=== PATIENT | male | born 1985 | race Caucasian/White ===

== ENCOUNTER 2021-12-23 17:01 | Emergency (ER) | payer SELFPAY ==
[~2021-12-23] VITALS: Ht 180.3 cm; Wt 76.0 kg
[~2021-12-23 17:01] MED LIST: PERCOCET 5/325M1 TAB PO
[2021-12-23 17:10] VITALS: BP 144/85
[2021-12-23 17:15] VITALS: BP 134/86
[2021-12-23] MEDS ORDERED: KEFLEX500 MG PO (17:38)
== END 2021-12-23 18:10 | disposition home or self-care (01) | DRG 607 ==
LOC: ED 17:01
DX: L73.9 Follicular disorder, unspecified (principal); F17.210 Nicotine dependence, cigarettes, uncomplicated

== ENCOUNTER 2023-03-18 16:38 | Emergency (ER) | payer SELFPAY ==
[2023-03-18] VITALS (7 sets, daily range): BP systolic 109–124; BP diastolic 70–83
[~2023-03-18] VITALS: Ht 180.3 cm; Wt 63.5 kg
[~2023-03-18 16:38] MED LIST changes: +KEFLEX500 MG PO
[2023-03-18] MEDS ORDERED: BACTRIM DS1 TAB PO (18:06)
[2023-03-18] MEDS ORDERED: KEFLEX500 MG PO (18:06)
== END 2023-03-18 18:48 | disposition home or self-care (01) | DRG 603 ==
LOC: ED 16:38
DX: L03.115 Cellulitis of right lower limb (principal); S80.861A Insect bite (nonvenomous), right lower leg, initial encounter; F17.200 Nicotine dependence, unspecified, uncomplicated; W57.XXXA Bitten or stung by nonvenomous insect and other nonvenomous arthropods, initial encounter